=== PATIENT | male | born 1950 | race Caucasian/White ===

== ENCOUNTER 2021-10-28 08:18 | Observation (INO) ==
[2021-10-28] MEDS ORDERED: SODIUM CHLORIDE 0.9% 500 ML IV SCH (08:45)
[2021-10-28] MEDS ORDERED: SODIUM CHLORIDE 0.9% 1000ML 1,000 ML IV SCH (08:45)
[2021-10-28 08:47] LABS: Basophils # (auto) 0.04 K/uL (0-0.2); Basophils % (auto) 0.6 %; Eosinophils # (auto) 0.09 K/uL (0-0.50); Eosinophils % (auto) 1.3 %; Hematocrit (blood only) 39.4 % (40.1-51.0); Hemoglobin 13.3 g/dl (14.0-18.0); Immature Granulocytes # (auto) 0.02 K/uL (0.00-0.02); Immature Granulocytes % (auto) 0.3 %; Lymphocytes # (auto) 1.92 K/uL (1.2-3.4); Mean Corpuscular Hemoglobin 30.1 pg (25.0-34.0); Mean Corpuscular Hgb Conc 33.8 g/dL (32.0-36.0); Mean Corpuscular Volume 89.1 fL (80.0-100.0); Mean Platelet Volume 10.3 fL (9.4-12.4); Monocytes # (auto) 0.54 K/uL (0.24-0.82); Monocytes % (auto) 7.9 %; Neutrophils # (auto) 4.25 K/uL (1.4-6.5); Neutrophils % (auto) 61.9 %; Platelet Count 226 K/uL (130-400); RDW Standard Deviation 39.1 fL (36.4-46.3); Red Blood Count 4.42 M/uL (4.63-6.08); White Blood Count 6.86 K/ul (4.8-10.8)
[2021-10-28] MEDS ORDERED: ACETAMINOPHEN 500 MG TAB PO STA (08:48)
--- NOTE | 2021-10-28 08:50 | Emergency Department Note ---
Impression & Plan Syncope and collapse, Headache, Acute neck pain, Hyperglycemia ED Provider Note INFORMANT: Patient ED PROVIDER(S): Dougie King MD CHIEF COMPLAINT: Syncope PLAN: Disposition: Admitted Condition: Good Outpatient prescription management: none Referral: None MEDICAL DECISION MAKING: Patient presented to the emergency department because of a syncopal episode. There was no prodrome inciting event by history. The patient underwent a work- up. He had a normal ECG. His CBC, chemistry panel, troponin and D-dimer did not reveal any obvious abnormalities. CT imaging of the head and neck did not reveal any traumatic findings or other pathology. Patient was on the monitor tech and was in a sinus rhythm. His syncope is concerning for possible cardiac etiology. Further management in the hospital will be necessary. Patient and are in agreement. Consultation was made with the [facility]. Patient was evaluated for further management. Triage Nursing notes reviewed and agree them. Vital Signs: reviewed and remarkable for no significant abnormalities Differential diagnosis: Vasovagal event, dehydration, infection, hypoglycemia, electrolyte abnormalities, cardiac sources, intracerebral event, pulmonary embolism, seizure, toxicologic, neurologic, as well as other pathologies. Diagnostics interpreted by me: EC Lead ECG performed and revealed Normal sinus rhythm at 73, Left [place], QRS normal. No elevation or depression. No PACs or PVCs Cardiac Monitoring: Cardiac monitoring ordered by me: The patient was placed on continuous cardiac monitoring and observed. It revealed a normal sinus rhythm at 72beats per minute without ectopy or evidence of dysrhythmia. Imaging studies: CT imaging of the head and C-spine negative. I refer you to the EMR for further details. Chest x-ray. Findings: A chest x-ray was performed and revealed no pneumothorax, effusion, infiltrate, pulmonary edema, free air under the diaphragm, or wide mediastinum. Impression: No acute disease. HPI: The patient is a 71 year old male who presents to the Emergency Room with complaints of syncope. This started just prior to arrival and is described as sudden in onset. Patient had no prodrome. reports she heard a thump and went to him right away. He was on the floor and out of it. He does not remember falling. The patient also notes the following associated symptoms, developing a mild headache after the event, neck pain after the event. Patient states he is diabetic and his sugars have been fluctuating. His sugar was 300 this morning and 240 on arrival. States he has been in good health recently. He did travel from the [place] area in his camper to vacation here locally. No sick contacts that he is aware of. No flu symptoms. The patient has taken no medication for relieving factors. Current pain is rated as 0/10. Pt denies LOC, fevers, chills, diaphoresis, visual changes, chest pain, breathing difficulties, nausea, vomiting, abdominal pain, back pain, melena, hematochezia, urinary symptoms, numbness, weakness, lymphadenopathy, rash, or other complaints. ROS: See above HPI for pertinent positives & negatives. A total of 10 systems reviewed and were otherwise negative. PAST MEDICAL HISTORY:See Below , diabetes, hypertension PAST SURGICAL HISTORY:See Below, FAMILY HISTORY:See Below SOCIAL HISTORY:See Below, HOME MEDICATIONS:See Below ALLERGIES:See Below VITALS:See Below PHYSICAL EXAMINATION: GENERAL: Awake, alert, well-appearing, in no distress HENT: Normocephalic, atraumatic. Oropharynx unremarkable. EYES: Normal conjunctiva. Sclera non-icteric. PERRLA. EOMI. NECK: Inspection normal. Non-tender. Supple. No nuchal rigidity. FROM. No masses. RESPIRATORY: Clear to auscultation. No wheezes. No rales. Normal respiratory effort. CARDIAC: Normal rate. Normal rhythm. No murmurs. No rubs. Extremities warm and well perfused. Pulses equal. No JVD. GI: Soft, non-distended. No tenderness to palpation. No rebound or guarding. No masses. RECTAL: Deferred. MUSCULOSKELETAL: Atraumatic. Chest examination reveals no tenderness. The back is symmetrical on inspection without obvious abnormality. There is no CVA tenderness to palpation. No joint edema. LOWER EXTREMITIES: Calves are equal size bilaterally and non-tender. No edema. No discoloration. NEURO: Normal sensorium. No sensory or motor deficits noted. Cranial nerves II through XII intact. No drift. Normal rapid alternating movements. SKIN: No rash or jaundice noted. Dougie King MD Past Med/Surg History Medical History (Updated 10/28/21 @ 12:23 by Damaris Paulino PA-C) History of prostate cancer Hypertension SHABBIR (obstructive sleep apnea) Type 2 diabetes mellitus Surgical History H/O prostatectomy Family History Other Diabetes Stroke Social History Smoking Status: Never smoker Hx Alcohol Use: No Hx Substance Use: No Preferred Language: Swedish Resource Management Planner Required: No Beliefs That Will Affect Care: None Current Living Situation: Spouse Current Living Situation Comment: Lives at home with Other Information That Helps Us Care for You: No Feels Safe at Home: Yes Safety Concerns: Feels Safe At This Time Assistive Devices: Glasses Allergies Allergies Allergy/AdvReac Type Severity Reaction Status Date / Time sulfamethoxazole AdvReac Hives Verified 10/28/21 13:31 [From Bactrim] trimethoprim [From Bactrim] AdvReac Hives Verified 10/28/21 13:31 Home Meds Home Medications Medication Instructions Recorded Confirmed allopurinol 100 mg tablet 100 mg PO DAILY 10/28/21 10/28/21 cholecalciferol (vitamin D3) 25 25 mcg PO DAILY 10/28/21 10/28/21 mcg (1,000 unit) tablet cyanocobalamin (vitamin B-12) 1,000 mcg PO DAILY 10/28/21 10/28/21 1,000 mcg tablet (Vitamin B-12) dulaglutide 3 mg/0.5 mL 3 mg subcut WK 10/28/21 10/28/21 subcutaneous pen injector (Trulicity) glipizide 5 mg tablet 5 mg PO BID 10/28/21 10/28/21 hydrochlorothiazide 25 mg tablet 25 mg PO DAILY 10/28/21 10/28/21 losartan 100 mg tablet 100 mg PO DAILY 10/28/21 10/28/21 magnesium 1 tab PO DAILY 10/28/21 10/28/21 metformin 1,000 mg tablet 1,000 mg PO BID 10/28/21 10/28/21 nebivolol 5 mg tablet 5 mg PO DAILY 10/28/21 10/28/21 rosuvastatin 10 mg tablet 10 mg PO HS 10/28/21 10/28/21 Results & Data (ED) Vital Signs Vital Signs - 24 hr 10/28/21 08:21 Temperature 36.3 C L Temperature Source Temporal Artery Scan Pulse Rate 72 Respiratory Rate 20 Respiratory Effort / Characteristics Non-Labored Spontaneous Respiratory Depth Normal Respiratory Pattern Regular Blood Pressure 186/82 H Blood Pressure Mean 116 Pulse Oximetry 98 Oxygen Delivery Method Room Air Sepsis Recent Fever Within 48 Hours No Sepsis New/Unexplained Change in Mental Status No Sepsis Action Taken by Nursing No Action Required Laboratory Data Result diagrams: 10/29/21 06:09 10/29/21 06:09 Lab Results 10/28/21 10/28/21 10/28/21 Range/Units 08:35 08:37 08:37 WBC 6.86 (4.8-10.8) K/ul RBC 4.42 L (4.63-6.08) M/uL Hgb 13.3 L (14.0-18.0) g/dl Hct 39.4 L (40.1-51.0) % MCV 89.1 (80.0-100.0) fL MCH 30.1 (25.0-34.0) pg MCHC 33.8 (32.0-36.0) g/dL RDW Std Deviation 39.1 (36.4-46.3) fL RDW Coeff of Kaylee 12.0 (11.5-14.5) % Plt Count 226 (130-400) K/uL MPV 10.3 (9.4-12.4) fL Immature Gran % (Auto) 0.3 % Neut % (Auto) 61.9 % Lymph % (Auto) 28.0 % [place] % (Auto) 7.9 % Eos % (Auto) 1.3 % Baso % (Auto) 0.6 % Neut # (Auto) 4.25 (1.4-6.5) K/uL Lymph # (Auto) 1.92 (1.2-3.4) K/uL [place] # (Auto) 0.54 (0.24-0.82) K/uL Eos # (Auto) 0.09 (0-0.50) K/uL Baso # (Auto) 0.04 (0-0.2) K/uL Immature Gran # (Auto) 0.02 (0.00-0.02) K/uL D-Dimer (0-500) ug/L FEU Sodium 136 (136-145) mmol/L Potassium 4.2 (3.5-5.1) mmol/L Chloride 104 (98-107) mmol/L Carbon Dioxide 27 (21-32) mmol/L Anion Gap 5 (3-11) BUN 14 (6-23) mg/dl Creatinine 1.14 (0.6-1.4) mg/dl Est Cr Clr Drug Dosing 69.8 ml/min Est GFR ( Amer) 74.6 ml/min Est GFR (Non-Af Amer) 64.3 ml/min BUN/Creatinine Ratio 12.3 (10-20) Glucose 233 H (70-99(Fasting)) mg/dl POC Glucose 240 H (70-99) mg/dl Calcium 9.5 (8.5-10.1) mg/dl Magnesium 1.8 (1.7-2.4) mg/dl Total Bilirubin 0.5 (0.2-1.0) mg/dl AST 33 (13-39) U/L ALT 43 (7-52) U/L Alkaline Phosphatase 76 (34-104) U/L Troponin I High Sens 4.5 (0-20) pg/ml Total Protein 6.9 (6.0-8.3) gm/dl Albumin 4.2 (3.4-5.0) gm/dl Globulin 2.7 (2.5-4.0) gm/dl Albumin/Globulin Ratio 1.6 (0.9-2) TSH (0.300-4.500) uIu/ml Urine Color Urine Appearance (Clear) Urine pH (4.5-7.5) Ur Specific [place] (1.000-1.030) Urine Protein (Negative) Urine Glucose (UA) (Negative) Urine Ketones (Negative) Urine Blood (Negative) Urine Nitrite (Negative) Urine Bilirubin (Negative) Urine Urobilinogen (Negative) Ur Leukocyte Esterase (Negative) SARS-CoV-2, RNA, NAAT (NEGATIVE) 10/28/21 10/28/21 10/28/21 Range/Units 08:37 08:37 09:01 WBC (4.8-10.8) K/ul RBC (4.63-6.08) M/uL Hgb (14.0-18.0) g/dl Hct (40.1-51.0) % MCV (80.0-100.0) fL MCH (25.0-34.0) pg MCHC (32.0-36.0) g/dL RDW Std Deviation (36.4-46.3) fL RDW Coeff of Kaylee (11.5-14.5) % Plt Count (130-400) K/uL MPV (9.4-12.4) fL Immature Gran % (Auto) % Neut % (Auto) % Lymph % (Auto) % [place] % (Auto) % Eos % (Auto) % Baso % (Auto) % Neut # (Auto) (1.4-6.5) K/uL Lymph # (Auto) (1.2-3.4) K/uL [place] # (Auto) (0.24-0.82) K/uL Eos # (Auto) (0-0.50) K/uL Baso # (Auto) (0-0.2) K/uL Immature Gran # (Auto) (0.00-0.02) K/uL D-Dimer 210 (0-500) ug/L FEU Sodium (136-145) mmol/L Potassium (3.5-5.1) mmol/L Chloride (98-107) mmol/L Carbon Dioxide (21-32) mmol/L Anion Gap (3-11) BUN (6-23) mg/dl Creatinine (0.6-1.4) mg/dl Est Cr Clr Drug Dosing ml/min Est GFR ( Amer) ml/min Est GFR (Non-Af Amer) ml/min BUN/Creatinine Ratio (10-20) Glucose (70-99(Fasting)) mg/dl POC Glucose (70-99) mg/dl Calcium (8.5-10.1) mg/dl Magnesium (1.7-2.4) mg/dl Total Bilirubin (0.2-1.0) mg/dl AST (13-39) U/L ALT (7-52) U/L Alkaline Phosphatase (34-104) U/L Troponin I High Sens (0-20) pg/ml Total Protein (6.0-8.3) gm/dl Albumin (3.4-5.0) gm/dl Globulin (2.5-4.0) gm/dl Albumin/Globulin Ratio (0.9-2) TSH 2.543 (0.300-4.500) uIu/ml Urine Color Urine Appearance (Clear) Urine pH (4.5-7.5) Ur Specific [place] (1.000-1.030) Urine Protein (Negative) Urine Glucose (UA) (Negative) Urine Ketones (Negative) Urine Blood (Negative) Urine Nitrite (Negative) Urine Bilirubin (Negative) Urine Urobilinogen (Negative) Ur Leukocyte Esterase (Negative) SARS-CoV-2, RNA, NAAT NEGATIVE (NEGATIVE) 10/28/21 Range/Units 10:15 WBC (4.8-10.8) K/ul RBC (4.63-6.08) M/uL Hgb (14.0-18.0) g/dl Hct (40.1-51.0) % MCV (80.0-100.0) fL MCH (25.0-34.0) pg MCHC (32.0-36.0) g/dL RDW Std Deviation (36.4-46.3) fL RDW Coeff of Kaylee (11.5-14.5) % Plt Count (130-400) K/uL MPV (9.4-12.4) fL Immature Gran % (Auto) % Neut % (Auto) % Lymph % (Auto) % [place] % (Auto) % Eos % (Auto) % Baso % (Auto) % Neut # (Auto) (1.4-6.5) K/uL Lymph # (Auto) (1.2-3.4) K/uL [place] # (Auto) (0.24-0.82) K/uL Eos # (Auto) (0-0.50) K/uL Baso # (Auto) (0-0.2) K/uL Immature Gran # (Auto) (0.00-0.02) K/uL D-Dimer (0-500) ug/L FEU Sodium (136-145) mmol/L Potassium (3.5-5.1) mmol/L Chloride (98-107) mmol/L Carbon Dioxide (21-32) mmol/L Anion Gap (3-11) BUN (6-23) mg/dl Creatinine (0.6-1.4) mg/dl Est Cr Clr Drug Dosing ml/min Est GFR ( Amer) ml/min Est GFR (Non-Af Amer) ml/min BUN/Creatinine Ratio (10-20) Glucose (70-99(Fasting)) mg/dl POC Glucose (70-99) mg/dl Calcium (8.5-10.1) mg/dl Magnesium (1.7-2.4) mg/dl Total Bilirubin (0.2-1.0) mg/dl AST (13-39) U/L ALT (7-52) U/L Alkaline Phosphatase (34-104) U/L Troponin I High Sens (0-20) pg/ml Total Protein (6.0-8.3) gm/dl Albumin (3.4-5.0) gm/dl Globulin (2.5-4.0) gm/dl Albumin/Globulin Ratio (0.9-2) TSH (0.300-4.500) uIu/ml Urine Color Yellow Urine Appearance Clear (Clear) Urine pH 5.0 (4.5-7.5) Ur Specific [place] 1.012 (1.000-1.030) Urine Protein Negative (Negative) Urine Glucose (UA) Trace H (Negative) Urine Ketones Negative (Negative) Urine Blood Negative (Negative) Urine Nitrite Negative (Negative) Urine Bilirubin Negative (Negative) Urine Urobilinogen Negative (Negative) Ur Leukocyte Esterase Negative (Negative) SARS-CoV-2, RNA, NAAT (NEGATIVE) Administered Medications Acetaminophen (Acetaminophen 325 Mg Tab) 650 mg PO Q4H PRN PRN Reason: Pain or Fever Stop: 11/27/21 13:30 Last Admin: 10/29/21 02:03 Dose: 650 mg Documented By: NABIL Allopurinol (Allopurinol 100 Mg Tab) 100 mg PO DAILY [facility] Stop: 11/28/21 08:59 Last Admin: 10/29/21 08:06 Dose: 100 mg Documented By: RB Cyanocobalamin (Cyanocobalamin (B-12) 500 Mcg Tablet) 1,000 mcg PO DAILY [facility] Stop: 11/28/21 08:59 Last Admin: 10/29/21 08:06 Dose: 1,000 mcg Documented By: RB Enoxaparin Sodium (Enoxaparin Inj 40 Mg/0.4 Ml Syr) 40 mg SQ Q24H [facility] Stop: 11/27/21 13:30 Last Admin: 10/28/21 14:48 Dose: 40 mg Documented By: RB Hydrochlorothiazide (Hydrochlorothiazide 25 Mg Tab) 25 mg PO DAILY [facility] Stop: 11/28/21 08:59 Last Admin: 10/29/21 08:06 Dose: 25 mg Documented By: RB Insulin Aspart (Insulin Aspart Per Unit) 0 units SC ACHS CON Stop: 11/27/21 16:29 Last Admin: 10/29/21 08:07 Dose: 4 units Documented By: RB Co-signed By: Admin: 10/28/21 20:32 Dose: Not Given Documented By: Admin: 10/28/21 17:04 Dose: 9 units Documented By: RB Co-signed By: JESS Losartan Potassium (Losartan Potassium 50 Mg Tab) 100 mg PO DAILY CON Stop: 11/28/21 08:59 Last Admin: 10/29/21 08:05 Dose: 100 mg Documented By: RB Magnesium Oxide (Magnesium Oxide 400 Mg Tab) 400 mg PO DAILY CON Stop: 11/28/21 08:59 Last Admin: 10/29/21 08:05 Dose: 400 mg Documented By: RB Metoprolol Tartrate (Metoprolol Tartrate 25 Mg Tab) 25 mg PO BID CON Stop: 11/27/21 20:59 Last Admin: 10/29/21 08:06 Dose: 25 mg Documented By: Admin: 10/28/21 20:32 Dose: Not Given Documented By: EEM Rosuvastatin Calcium (Rosuvastatin Calcium 10 Mg Tab) 10 mg PO HS CON Stop: 11/27/21 20:59 Last Admin: 10/28/21 20:31 Dose: 10 mg Documented By: EEM Vitamin D (Cholecalciferol 1,000 Units 25 Mcg Tab) 1,000 units PO DAILY CON Stop: 11/28/21 08:59 Last Admin: 10/29/21 08:06 Dose: 1,000 units Documented By: RB Discontinued Medications Acetaminophen (Acetaminophen 500 Mg Tab) 1,000 mg PO NOW STA Stop: 10/28/21 08:49 Last Admin: 10/28/21 09:04 Dose: 1,000 mg Documented By: HS Sodium Chloride (Nss) 500 mls @ 999 mls/hr IV .Q31M CON Stop: 10/28/21 09:15 Last Infusion: 10/28/21 09:31 Dose: 0 mls/hr Documented By: Admin: 10/28/21 09:05 Dose: 999 mls/hr Documented By: HS Sodium Chloride (Nss 1000ml) 1,000 mls @ 125 mls/hr IV .Q8H CON Stop: 10/28/21 16:44 Last Infusion: 10/28/21 14:57 Dose: 0 mls/hr Documented By: Admin: 10/28/21 09:05 Dose: 125 mls/hr Documented By: HS Discharge Plan Visit Data Chief Complaint: Syncope Stated Complaint: SYNCOPE ED Provider: Dougie King Discharge Problem: Syncope and collapse, Headache, Acute neck pain, Hyperglycemia Patient Disposition: Admitted As Inpatient Discharge Instructions Interventions: ED Discharge Assessment Last Done: 10/28/21 13:06
--- NOTE | 2021-10-28 09:11 | XRay Report ---
XR chest 1V portable CLINICAL HISTORY: weakness TECHNIQUE: Single frontal radiograph of the chest was obtained. Comparison: None available at the time of this dictation. FINDINGS: No lines and tubes are seen. The cardiomediastinal silhouette is normal. The lungs are clear. No evid ence of pleural effusion or pneumothorax. IMPRESSION: No acute chest disease. ACT 112: Negative or not required by law. Electronically signed by: Aniceto Brennan M.D. 10/28/2021 9:09 AM
[2021-10-28 09:14] LABS: Troponin I High Sensitivity 4.5 pg/ml (0-20)
[2021-10-28 09:22] LABS: Albumin Globulin Ratio 1.6 (0.9-2); Albumin Level 4.2 gm/dl (3.4-5.0); BUN Creatinine Ratio 12.3 (10-20); Bilirubin,Total 0.5 mg/dl (0.2-1.0); Calcium 9.5 mg/dl (8.5-10.1); Creatinine Clr Calc Pharmacy 69.8 ml/min; Est GFR (African American) 74.6 ml/min; Est GFR (Non-African American) 64.3 ml/min; Globulin 2.7 gm/dl (2.5-4.0); Magnesium 1.8 mg/dl (1.7-2.4); Potassium 4.2 mmol/L (3.5-5.1); Total Protein 6.9 gm/dl (6.0-8.3)
[2021-10-28 09:43] LABS: D Dimer 210 ug/L FEU (0-500)
--- NOTE | 2021-10-28 09:44 | CT Scan Report ---
CT head/brain wo con CLINICAL HISTORY: syncope, [facility] Technique: Contiguous axial CT images of the head were acquired from the base of the skull to the diony karthik without intravenous contrast administration. Images were viewed in brain, subdural and bone [facility]. Automated dose lowering techniques and/or adjustment according to patient size were utilized for this exam. Comparison: None available at the time of this dictation. Findings: Areas of decreased attenuation are present in the periventricular and subcortical white matter bilate rally consistent with small vessel ischemic disease. Generalized cerebral atrophy with commensurate e nlargement of the ventricles, sulci, and cisterns is also present. There is no acute intracranial hem orrhage or evidence of acute territorial infarction. No shift of the midline structures, mass effect, or extra-axial abnormalities are shown. Atherosclerotic calcifications are present in the intracran ial segments of the internal carotid arteries. Imaged portions of the paranasal sinuses and mastoid air cells are clear. The orbits appear normal. There are no acute fractures of the calvaria or scalp swelling. Impression: No acute intracranial hemorrhage, no evidence of acute territorial infarction or other acute intracra nial disease process. ACT 112: Negative or not required by law. Electronically signed by: Aniceto Brennan M.D. 10/28/2021 9:43 AM
--- NOTE | 2021-10-28 09:44 | CT Scan Report ---
CT cervical spine wo con CLINICAL HISTORY: syncope, fall, neck pain TECHNIQUE: Multidetector row helical CT of the cervical spine was performed without administration of intravenous contrast. Coronal and sagittal reformations were obtained. Automated dose lowering techn iques and/or adjustment according to patient size were utilized for this exam. Comparison: None available at the time of this dictation. FINDINGS: No acute fractures or subluxations are identified. Degenerative changes are seen in the visualized sp ine. The alignment is normal. Soft tissues are unremarkable. IMPRESSION: Degenerative changes without evidence of acute bony injury. ACT 112: Negative or not required by law. Electronically signed by: Aniceto Brennan M.D. 10/28/2021 9:42 AM
[2021-10-28 10:32] LABS: Appearance Urine Clear (Clear); Bilirubin Urine Negative (Negative); Blood Urine Negative (Negative); Color Urine Yellow; Glucose Urine UA Trace (Negative); Ketones Urine Negative (Negative); Leukocyte Esterase Urine Negative (Negative); Nitrite Urine Negative (Negative); Protein Urine Negative (Negative); Specific Gravity Urine 1.012 (1.000-1.030); Urobilinogen Urine Negative (Negative)
--- NOTE | 2021-10-28 10:41 | History & Physical Report ---
Date of Service October 28, 2021 Assessment & Plan (1) Syncope and collapse: Plan: This is a 71-year-old male with PMH of hypertension, type 2 diabetes, history of prostate cancer, SHABBIR on CPAP and other medical problems listed below who presents after unwitnessed syncopal event earlier today. Rule out cardiac etiology, history of HTN and DM II. No Known CAD or arrythmia hx ECG with NSR, LAD. No previous ECGs for comparison Afebrile, no leukocytosis or s/sx of infection Orthostatics, 2D echo, carotid doppler, MRI brain wo con pending Monitor on telemetry (2) Hypertension: Plan: Continue home losartan, hctz, nebivolol BP following syncopal episode 170/85. 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 Burkett. Please see addendum. History of Present Illness Chief Complaint: Syncopal event Primary Care Provider: NO PCP This is a 71-year-old male with PMH of hypertension, type 2 diabetes, history of prostate cancer, SHABBIR on CPAP and other medical problems listed below who presents after unwitnessed syncopal event earlier today. Patient and are on vacation from [place] outside of [place] in their mobile home staying at a local campground. Patient has been in normal state of health and able to go on his daily walks. Was getting ready this morning for his walk when he turned to grab his shirt off of the bed and then remembers "feeling funny" as if "mobile home was moving". Next thing he remembers is lying on the ground coming to with his by his side. They checked his blood sugar at that time which was 308. Blood pressure was 170/85. Denies any preceding lightheadedness, dizziness, chest pain or palpitations prior to syncopal event. Denies history of syncopal episodes. 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 No known history of CAD. No history of seizure. States he feels fine now except for general fatigue and fogginess. Denies confusion and headache. No fever, chills, congestion, chest pain, palpitations, shortness of breath, nausea, vomiting, abdominal pain, dysuria, diarrhea or constipation. Takes all medications as prescribed and took his blood pressure medication this morning. Allergies Allergy/AdvReac Type Severity Reaction Status Date / Time sulfamethoxazole AdvReac Hives Verified 10/28/21 13:31 [From Bactrim] trimethoprim [From Bactrim] AdvReac Hives Verified 10/28/21 13:31 Home Medications Medication Instructions Recorded Confirmed Type allopurinol 100 mg tablet 100 mg PO DAILY 10/28/21 10/28/21 History cholecalciferol (vitamin D3) 25 25 mcg PO DAILY 10/28/21 10/28/21 History mcg (1,000 unit) tablet cyanocobalamin (vitamin B-12) 1,000 mcg PO DAILY 10/28/21 10/28/21 History 1,000 mcg tablet (Vitamin B-12) dulaglutide 3 mg/0.5 mL 3 mg subcut WK 10/28/21 10/28/21 History subcutaneous pen injector (Trulicity) glipizide 5 mg tablet 5 mg PO BID 10/28/21 10/28/21 History hydrochlorothiazide 25 mg tablet 25 mg PO DAILY 10/28/21 10/28/21 History losartan 100 mg tablet 100 mg PO DAILY 10/28/21 10/28/21 History magnesium 1 tab PO DAILY 10/28/21 10/28/21 History metformin 1,000 mg tablet 1,000 mg PO BID 10/28/21 10/28/21 History nebivolol 5 mg tablet 5 mg PO DAILY 10/28/21 10/28/21 History rosuvastatin 10 mg tablet 10 mg PO HS 10/28/21 10/28/21 History Past Med/Surg History Medical History (Updated 10/28/21 @ 12:23 by Damaris Paulino PA-C) History of prostate cancer Hypertension SHABBIR (obstructive sleep apnea) Type 2 diabetes mellitus Surgical History H/O prostatectomy Family History Other Diabetes Stroke Social History Smoking Status: Never smoker Hx Alcohol Use: No Hx Substance Use: No 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 Physical Exam Physical Exam: General Appearance: WD/WN, vitals as above, NAD, sitting up in bed, pleasant, obese, conversing easily Head: normocephalic, atraumatic Eyes: normal inspection, PERRL, conjunctivae normal, anicteric sclerae ENT: external ear and nose normal, oropharynx normal Neck: normal visual inspection, trachea midline, no thyromegaly Respiratory: normal respiratory effort, lungs clear to auscultation, no wheeze, rales, rhonchi. No accessory muscle use Cardiovascular: regular rate, rhythm, no murmur, normal peripheral pulses, trace BLE edema. Vessels: no JVD Chest: normal inspection of chest Abdomen/GI: normal bowel sounds, soft, nontender, no hepatosplenomegaly Extremities/Musculoskeletal: no cyanosis or clubbing, extremities motor strength 5/5 Neurologic: PERRL, EOMI, accommodation nl, no face palsy, no dysarthria, CN's II-XI intact bilaterally and moves all extremities Psychiatric: A+Ox3, euthymic affect Skin: no rashes, normal color, warm/dry Results & Data Results & Data ([facility]) Vital Signs (Past 12 Hours) Vital Signs Temp Pulse Resp BP Pulse Ox O2 Del Method 10/28/21 08:21 36.3 C L 72 20 186/82 H 98 Room Air Laboratory Results Short CBC 10/28/21 Range/Units 08:37 WBC 6.86 (4.8-10.8) K/ul Hgb 13.3 L (14.0-18.0) g/dl Hct 39.4 L (40.1-51.0) % Plt Count 226 (130-400) K/uL BMP 10/28/21 08:37 Sodium 136 Potassium 4.2 Chloride 104 Carbon Dioxide 27 BUN 14 Creatinine 1.14 Glucose 233 H Calcium 9.5 Liver Function 10/28/21 Range/Units 08:37 Total Bilirubin 0.5 (0.2-1.0) mg/dl AST 33 (13-39) U/L ALT 43 (7-52) U/L Alkaline Phosphatase 76 (34-104) U/L Albumin 4.2 (3.4-5.0) gm/dl Urine 10/28/21 Range/Units 10:15 Urine Color Yellow Urine Appearance Clear (Clear) Urine pH 5.0 (4.5-7.5) Ur Specific [place] 1.012 (1.000-1.030) Urine Protein Negative (Negative) Urine Glucose (UA) Trace H (Negative) Diagnostic Findings Head CT 10/28/21 08:36 CT head/brain wo con CLINICAL HISTORY: syncope, CHI Technique: Contiguous axial CT images of the head were acquired from the base of the skull to the vertex without intravenous contrast administration. Images were viewed in brain, subdural and bone windows. Automated dose lowering techniques and/or adjustment according to patient size were utilized for this exam. Comparison: None available at the time of this dictation. Findings: Areas of decreased attenuation are present in the periventricular and subcortical white matter bilaterally consistent with small vessel ischemic disease. Generalized cerebral atrophy with commensurate enlargement of the ventricles, sulci, and cisterns is also present. There is no acute intracranial hemorrhage or evidence of acute territorial infarction. No shift of the midline structures, mass effect, or extra-axial abnormalities are shown. Atherosclerotic calcifications are present in the intracranial segments of the internal carotid arteries. Imaged portions of the paranasal sinuses and mastoid air cells are clear. The orbits appear normal. There are no acute fractures of the calvaria or scalp swelling. Impression: No acute intracranial hemorrhage, no evidence of acute territorial infarction or other acute intracranial disease process. ACT 112: Negative or not required by law. Electronically signed by: Aniceto Brennan M.D. 10/28/2021 9:43 AM Chest X-Ray 10/28/21 08:37 XR chest 1V portable CLINICAL HISTORY: weakness TECHNIQUE: Single frontal radiograph of the chest was obtained. Comparison: None available at the time of this dictation. FINDINGS: No lines and tubes are seen. The cardiomediastinal silhouette is normal. The lungs are clear. No evidence of pleural effusion or pneumothorax. IMPRESSION: No acute chest disease. ACT 112: Negative or not required by law. Electronically signed by: Aniceto Brennan M.D. 10/28/2021 9:[address] 10/28/21 08:48 CT cervical spine wo con CLINICAL HISTORY: syncope, fall, neck pain TECHNIQUE: Multidetector row helical CT of the cervical spine was performed without administration of intravenous contrast. Coronal and sagittal reformat ions were obtained. Automated dose lowering techniques and/or adjustment according to patient size were utilized for this exam. Comparison: None available at the time of this dictation. FINDINGS: No acute fractures or subluxations are identified. Degenerative changes are seen in the visualized spine. The alignment is normal. Soft tissues are unremarkable. IMPRESSION: Degenerative changes without evidence of acute bony injury. ACT 112: Negative or not required by law. Electronically signed by: Aniceto rBennan M.D. 10/28/2021 9:42 AM ECG Additional Comments: Normal sinus rhythm Left axis deviation Abnormal ECG No previous ECGs available Code Status & VTE Plan VTE Prophylaxis Plan VTE Prophylaxis will be ordered: Yes Supervising Physician Co-Signing Physician Notes Attending Addendum: care coordinated with VALERIE Paulino please refer to her notes for full details, I agree with her notes patient seen and examined, records reviewed by myself as well on exam, patient seen resting in wheelchair, comfortable, not in distress no chest pain, dyspnea, palpitations, dizziness fell suddenly while getting ready to take a walk outside- no preceding symptoms per , passed out for about 4 minutes upon waking up, was somewhat confused but was reoriented quickly no other symptoms VS noted and reviewed oriented x 3, not in distress, speaks in sentences with no effort nor accessory muscle use normal rate, regular rhythm, no murmurs clear breath sounds bilaterally non distended, soft, nontender no bipedal edema, erythema, warmth no neuro deficits ASSESSMENT AND PLAN SYNCOPE, NO PRODROME Ddimer: normal blood glucose:233 EKG: no signs of acute ischemia infarct r/o acute CVA: Brain MRI r/o arrhythmia: telemetry monitoring, echo r/o orthostasis: orthostatic VS other diagnoses and plan of care as per VALERIE Paulino's notes Jhonathan Burkett MD
--- NOTE | 2021-10-28 12:06 | Electrocardiogram Report ---
Test Reason : Blood Pressure : / mmHG Vent. Rate : 075 BPM Atrial Rate : 075 BPM P-R Int : 176 ms QRS Dur : 094 ms QT Int : 372 ms P-R-T Axes : 075 -47 031 degrees QTc Int : 415 ms Normal sinus rhythm Left axis deviation Abnormal ECG No previous ECGs available Confirmed by Broderick Clay ([id number]) on 10/28/2021 12:05:47 PM Referred By: REFERRED SELF Confirmed By:Broderick Clay
[2021-10-28] MEDS ORDERED: CARBOHYDRATES FOR HYPOGLYCEMIA PO PRN (12:15)
[2021-10-28] MEDS ORDERED: GLUCAGON FOR INJ 1 MG VIAL SQ PRN (12:15)
[2021-10-28] MEDS ORDERED: GLUCOSE 10 TAB/TUBE PO PRN (12:15)
[2021-10-28] MEDS ORDERED: DEXTROSE 50% 50 ML SYRINGE IV PRN (12:15)
[2021-10-28] MEDS ORDERED: GLUCOSE 40% GEL 15 GM TUBE PO PRN (12:15)
--- NOTE | 2021-10-28 13:17 | Ultrasound Report ---
ULTRASOUND OF THE CAROTID ARTERIES CLINICAL HISTORY: syncope COMPARISON: None available at the time of this dictation. TECHNIQUE: Real-time, grayscale, and color Doppler sonography of the carotid arteries is performed. I mages are reviewed in the transverse and longitudinal planes. FINDINGS: The carotid arteries are patent bilaterally and demonstrate antegrade flow. There is no atherosclerot ic plaque on the right and no atherosclerotic plaque on the left. Normal doppler arterial waveforms a re seen throughout. Velocity measurements are listed below. Common carotid peak systolic velocity (cm/sec): RIGHT: 84 LEFT: 93 ICA peak systolic velocity (cm/sec): RIGHT: 69 LEFT: 69 ICA/CC peak systolic ratio: RIGHT: 0.8 LEFT: 0.7 Antegrade flow was shown in the vertebral arteries. The external carotid arteries are patent. IMPRESSION: 1. There is no sonographic evidence of hemodynamically significant stenosis in the right or left car otid arterial system. 2. Antegrade flow is shown in the vertebral arteries. Society of Radiologists in Ultrasound consensus guidelines: Normal: ICA PSV is <125 cm/sec and no plaque or intimal thickening is visible sonographically additional criteria include ICA/CCA PSV ratio <2.0 and ICA EDV <40 cm/sec <50% ICA stenosis: ICA PSV is <125 cm/sec and plaque or intimal thickening is visible sonographically additional criteria include ICA/CCA PSV ratio <2.0 and ICA EDV <40 cm/sec 50-69% ICA stenosis: ICA PSV is 125-230 cm/sec and plaque is visible sonographically additional criteria include ICA/CCA PSV ratio of 2.0-4.0 and ICA EDV of 40-100 cm/sec ?70% ICA stenosis but less than near occlusion: ICA PSV is >230 cm/sec and visible plaque and luminal narrowing are seen at olguin-scale and color Dopp ler ultrasound (the higher the Doppler parameters lie above the threshold of 230 cm/sec, the greater the likelihood of severe disease) additional criteria include ICA/CCA PSV ratio >4 and ICA EDV >100 cm/sec ACT 112: Negative or not required by law. Electronically signed by: Aniceto Brennan M.D. 10/28/2021 1:15 PM
--- NOTE | 2021-10-28 13:20 | Magnetic Resonance Report ---
MR brain wo con CLINICAL HISTORY: unexplained syncope TECHNIQUE: Multiplanar and multisequence MR images of the brain were obtained without intravenous con trast. Comparison: None available at the time of this dictation. FINDINGS: No abnormal restricted diffusion is identified. The white matter is unremarkable. The ventricular sys tem is normal in appearance. No mass is seen. There is no mass effect or midline shift. There is no e vidence of acute intraparenchymal hemorrhage. No extra axial fluid collections are seen. The corpus c allosum, pituitary gland, and cerebellar tonsils appear grossly unremarkable. Flow voids of the major intracranial arterial vessels are identified. The imaged portions of the para nasal sinuses, mastoid air cells, and orbits are unremarkable. IMPRESSION: No acute abnormality and in particular no evidence of acute infarct. ACT 112: Negative or not required by law. Electronically signed by: Aniceto Brennan M.D. 10/28/2021 1:19 PM
[2021-10-28] MEDS ORDERED: POLYETHYLENE (MIRALAX) 17 GM PACK PO PRN (13:31)
[2021-10-28] MEDS ORDERED: ONDANSETRON INJ 2 MG/ML 2 ML VIAL IV PRN (13:31)
[2021-10-28] MEDS ORDERED: ACETAMINOPHEN 325 MG TAB PO PRN (13:31)
[2021-10-28] MEDS: ENOXAPARIN INJ 40 MG/0.4 ML SYR SQ SCH (14:48)
[2021-10-28] MEDS: INSULIN ASPART PER UNIT SC SCH ×2 (17:04→20:32)
[2021-10-28] MEDS: METOPROLOL TARTRATE 25 MG TAB PO SCH (20:32)
[2021-10-28] MEDS ORDERED: ROSUVASTATIN CALCIUM 10 MG TAB PO SCH (21:00)
[2021-10-29 06:55] LABS: Hematocrit (blood only) 40.7 % (40.1-51.0); Hemoglobin 13.8 g/dl (14.0-18.0); Mean Corpuscular Hemoglobin 30.1 pg (25.0-34.0); Mean Corpuscular Hgb Conc 33.9 g/dL (32.0-36.0); Mean Corpuscular Volume 88.9 fL (80.0-100.0); Mean Platelet Volume 10.8 fL (9.4-12.4); Platelet Count 262 K/uL (130-400); RDW Coefficient of Variation 12.4 % (11.5-14.5); RDW Standard Deviation 40.5 fL (36.4-46.3); Red Blood Count 4.58 M/uL (4.63-6.08); White Blood Count 8.45 K/ul (4.8-10.8)
[2021-10-29 07:21] LABS: BUN Creatinine Ratio 14.3 (10-20); Calcium 9.3 mg/dl (8.5-10.1); Creatinine Clr Calc Pharmacy 66.5 ml/min; Est GFR (African American) 70.8 ml/min; Est GFR (Non-African American) 61.1 ml/min; Potassium 4.1 mmol/L (3.5-5.1)
[2021-10-29] MEDS: METOPROLOL TARTRATE 25 MG TAB PO SCH (08:06)
[2021-10-29] MEDS: INSULIN ASPART PER UNIT SC SCH ×2 (08:07→11:53)
[2021-10-29] MEDS ORDERED: CYANOCOBALAMIN (B-12) 500 MCG TABLET PO SCH (09:00)
[2021-10-29] MEDS ORDERED: LOSARTAN POTASSIUM 50 MG TAB PO SCH (09:00)
[2021-10-29] MEDS ORDERED: CHOLECALCIFEROL 1,000 UNITS 25 MCG TAB PO SCH (09:00)
[2021-10-29] MEDS ORDERED: allopurinoL 100 MG TAB PO SCH (09:00)
[2021-10-29] MEDS ORDERED: MAGNESIUM OXIDE 400 MG TAB PO SCH (09:00)
[2021-10-29] MEDS ORDERED: hydroCHLOROthiazide 25 MG TAB PO SCH (09:00)
--- NOTE | 2021-10-29 10:05 | Hospitalist Progress Note ---
Date of Service October 29, 2021 Assessment & Plan (1) Syncope and collapse: Plan: This is a 71-year-old male with PMH of hypertension, type 2 diabetes, history of prostate cancer, SHABBIR on CPAP and other medical problems listed below who presents after unwitnessed syncopal event No evidence of stroke, ACS, cardiac arrythmia, electrolyte abnormalities or changes in glucose. It is unclear what may have contributed here. Recently started allopurinol and statin in the last two months and trulicity was titrated up two weeks ago. It is unclear if that was a contributing factor. Would discharge and followup closely with primary care physician for further workup as outpatient if indicated, including consideration for an event monitor. (2) Hypertension: Plan: chronic, at goal. Continue home losartan, hctz, nebivolol (3) Type 2 diabetes mellitus: Plan: A1C pending, inpatient glucose at goal. Followup with primary care in one week of discharge and discuss possible medication side effects. (4) SHABBIR (obstructive sleep apnea): Plan: CPAP HS DVT Ppx: SQ heparin Code status: FULL PCP: Visiting from [place] Dispo: to home after cleared by Cardiology. Gaby Garcia DO [facility] Hospitalist Admission and Anticipated Discharge Date Admission Date: October 28, 2021 Subjective 71 yo M with DMII and HTN presents after an episode of syncope in his motor home. He is camping with his family this week in their motor home. He reports feeling unwell right before losing consciousness temporarily. He reports having eaten bran cereal with milk and having pizza the night before. His BSG was 300 after the incident. He started trucility two weeks prior and had just taken his second dose the night before the incident. Denies chest pain, denies any loss of bowel or bladder incontinence, denies history of syncope in the past. Nonsmoker and no alcohol use. Feel back to normal today although he is fatigued from lack of sleep. Review of Systems Review of Systems: All systems were reviewed and negative except as indicated on subjective above. Physical Exam Physical Exam: CONSTITUTIONAL: obese, vitals as above, generally well- appearing, NAD EYES: normal conjunctivae, no scleral icterus, ENT: external ear and nose normal, oropharynx clear, MMM NECK: trachea midline, RESPIRATORY: clear to auscultation bilaterally, no crackles, rales or wheezes, normal respiratory effort CARDIOVASCULAR: regular rate and rhythm, S1 and 2 heard without murmurs, gallops or rubs, no JVD, no peripheral edema CHEST: inspection of chest was normal GASTROINTESTINAL: soft, nontender, ND, no guarding MUSCULOSKELETAL: strength 5/5 throughout, head is normocephalic and atraumatic, SKIN: warm and dry, NEUROLOGIC: CN 2-12 grossly intact, no sensory deficit, normal cognition, normal speech, no tremor PSYCHIATRIC: alert cooperative and oriented to person, place and time. Euthymic mood, makes good eye contact, language grossly intact, recent and remote memory grossly intact. Results & Data Results & Data ([facility]) Vital Signs (Past 12 Hours) Vital Signs Temp Pulse Pulse Resp BP Pulse Ox O2 Del Method 10/29/21 07:32 86 10/29/21 07:14 36.7 C 70 18 149/81 H 98 Room Air 10/29/21 03:00 36.9 C 73 18 136/67 96 10/28/21 23:00 36.8 C 82 16 123/73 99 Laboratory Results Short CBC 10/29/21 Range/Units 06:09 WBC 8.45 (4.8-10.8) K/ul Hgb 13.8 L (14.0-18.0) g/dl Hct 40.7 (40.1-51.0) % Plt Count 262 (130-400) K/uL BMP 10/29/21 06:09 Sodium 137 Potassium 4.1 Chloride 103 Carbon Dioxide 30 BUN 17 Creatinine 1.19 Glucose 130 H Calcium 9.3 Urine 10/28/21 Range/Units 10:15 Urine Color Yellow Urine Appearance Clear (Clear) Urine pH 5.0 (4.5-7.5) Ur Specific [place] 1.012 (1.000-1.030) Urine Protein Negative (Negative) Urine Glucose (UA) Trace H (Negative) Medications Administered Current Inpatient Medications Acetaminophen (Acetaminophen 325 Mg Tab) 650 mg PO Q4H PRN PRN Reason: Pain or Fever Stop: 11/27/21 13:30 Last Admin: 10/29/21 02:03 Dose: 650 mg Allopurinol (Allopurinol 100 Mg Tab) 100 mg PO DAILY CON Stop: 11/28/21 08:59 Last Admin: 10/29/21 08:06 Dose: 100 mg Cyanocobalamin (Cyanocobalamin (B-12) 500 Mcg Tablet) 1,000 mcg PO DAILY CON Stop: 11/28/21 08:59 Last Admin: 10/29/21 08:06 Dose: 1,000 mcg Dextrose (Dextrose 50% 50 Ml Syringe) 25 - 50 ml IV UD PRN; Protocol PRN Reason: Hypoglycemia Protocol Stop: 11/27/21 12:14 Enoxaparin Sodium (Enoxaparin Inj 40 Mg/0.4 Ml Syr) 40 mg SQ Q24H CON Stop: 11/27/21 13:30 Last Admin: 10/28/21 14:48 Dose: 40 mg Glucagon (Glucagon For Inj 1 Mg Vial) 1 mg SQ UD PRN; Protocol PRN Reason: Hypoglycemia Protocol Stop: 11/27/21 12:14 Glucose (Glucose 40% Gel 15 Gm Tube) 15 - 30 gm PO UD PRN; Protocol PRN Reason: Hypoglycemia Protocol Stop: 11/27/21 12:14 Glucose (Glucose 10 Tab/Tube) 4 - 8 tab PO UD PRN; Protocol PRN Reason: Hypoglycemia Treatment Stop: 11/27/21 12:14 Hydrochlorothiazide (Hydrochlorothiazide 25 Mg Tab) 25 mg PO DAILY CON Stop: 11/28/21 08:59 Last Admin: 10/29/21 08:06 Dose: 25 mg Insulin Aspart (Insulin Aspart Per Unit) 0 units SC ACHS CON Stop: 11/27/21 16:29 Last Admin: 10/29/21 08:07 Dose: 4 units Losartan Potassium (Losartan Potassium 50 Mg Tab) 100 mg PO DAILY CON Stop: 11/28/21 08:59 Last Admin: 10/29/21 08:05 Dose: 100 mg Magnesium Oxide (Magnesium Oxide 400 Mg Tab) 400 mg PO DAILY CON Stop: 11/28/21 08:59 Last Admin: 10/29/21 08:05 Dose: 400 mg Metoprolol Tartrate (Metoprolol Tartrate 25 Mg Tab) 25 mg PO BID CON Stop: 11/27/21 20:59 Last Admin: 10/29/21 08:06 Dose: 25 mg Miscellaneous (Carbohydrates For Hypoglycemia ) 15 - 30 gm PO UD PRN PRN Reason: Hypoglycemia Protocol Stop: 11/27/21 12:14 Ondansetron HCl (Ondansetron Inj 2 Mg/Ml 2 Ml Vial) 4 mg IV Q6H PRN PRN Reason: Nausea Stop: 11/27/21 13:30 Polyethylene Glycol (Polyethylene (Miralax) 17 Gm Pack) 17 gm PO DAILY PRN PRN Reason: Constipation Stop: 11/27/21 13:30 Rosuvastatin Calcium (Rosuvastatin Calcium 10 Mg Tab) 10 mg PO HS [facility] Stop: 11/27/21 20:59 Last Admin: 10/28/21 20:31 Dose: 10 mg Vitamin D (Cholecalciferol 1,000 Units 25 Mcg Tab) 1,000 units PO DAILY CON Stop: 11/28/21 08:59 Last Admin: 10/29/21 08:06 Dose: 1,000 units
--- NOTE | 2021-10-29 12:47 | Cardiology Consultation ---
Date of Consultation October 29, 2021 Assessment & Plan (1) Syncope and collapse: (2) Hypertension: (3) Type 2 diabetes mellitus: Plan 71-year-old patient presents with syncopal episode. No preceding symptoms or palpitations. Patient recovered quickly without reported post ictal state. Cardiovascular evaluation unremarkable since admission. Echocardiogram demonstrating preserved LV systolic function. Telemetry reveals sinus rhythm without dysrhythmia, heart block, significant pauses, or symptomatic bradycardia. No symptoms suggestive of acute coronary syndrome. Denies any recent anginal symptoms with above average exercise capacity per history. Recommend continue current cardiovascular medications. Monitor telemetry during hospitalization. Outpatient event monitor recommended. Patient follows with a binding nicker in [place]. Instructed not to drive. agreeable to drive [place]. Patient will abstain from driving until he is evaluated by his binding nicker in [place]. Instructed to return to the emergency department with any recurrent lightheadedness, dizziness, syncope, or near syncope. History of Present Illness Reason for Consultation: Syncope Requesting Physician: Dr. Garcia Attending Physician: Gaby Garcia, History of Present Illness 71-year-old male presents emergency department due to syncope. Patient lost consciousness while standing in his camper. No prodromal/presyncopal symptoms noted. He is a diabetic with a history of hypoglycemia, however, assess blood glucose immediately afterward with a reading of over 300. Blood pressure 170s noted at home as well. believes duration of loss of consciousness was approximately 5 seconds. No witnessed tonic-clonic motion, tongue biting, or incontinence. Denies history of syncope. Follows with a binding nicker in [place] due to episode of chest discomfort and hypertension. Currently patient resting comfortably. Reports walking 1.5 miles daily without exertional angina. Denies palpitations, shortness of breath or chest discomfo rt. No focal weakness, slurred speech, paresthesias, or gait instability. Denies orthopnea, PND, or lower extremity edema. Currently feeling back to baseline. No events on telemetry overnight. Sinus rhythm in the 70s-80s recorded. No heart block, significant pauses, or symptomatic bradycardia. Allergies Allergy/AdvReac Type Severity Reaction Status Date / Time sulfamethoxazole AdvReac Hives Verified 10/28/21 13:31 [From Bactrim] trimethoprim [From Bactrim] AdvReac Hives Verified 10/28/21 13:31 Home Medications Medication Instructions Recorded Confirmed Type allopurinol 100 mg tablet 100 mg PO DAILY 10/28/21 10/28/21 History cholecalciferol (vitamin D3) 25 25 mcg PO DAILY 10/28/21 10/28/21 History mcg (1,000 unit) tablet cyanocobalamin (vitamin B-12) 1,000 mcg PO DAILY 10/28/21 10/28/21 History 1,000 mcg tablet (Vitamin B-12) dulaglutide 3 mg/0.5 mL 3 mg subcut WK 10/28/21 10/28/21 History subcutaneous pen injector (Trulicity) glipizide 5 mg tablet 5 mg PO BID 10/28/21 10/28/21 History hydrochlorothiazide 25 mg tablet 25 mg PO DAILY 10/28/21 10/28/21 History losartan 100 mg tablet 100 mg PO DAILY 10/28/21 10/28/21 History magnesium 1 tab PO DAILY 10/28/21 10/28/21 History metformin 1,000 mg tablet 1,000 mg PO BID 10/28/21 10/28/21 History nebivolol 5 mg tablet 5 mg PO DAILY 10/28/21 10/28/21 History rosuvastatin 10 mg tablet 10 mg PO HS 10/28/21 10/28/21 History Patient History Medical History History of prostate cancer Hypertension SHABBIR (obstructive sleep apnea) Type 2 diabetes mellitus Surgical History H/O prostatectomy Family History Other Diabetes Stroke Social History Smoking Status: Never smoker Hx Alcohol Use: No Hx Substance Use: No Preferred Language: Serbian Librarian Helper Required: No Beliefs That Will Affect Care: None Current Living Situation: Spouse Current Living Situation Comment: Lives at home with Other Information That Helps Us Care for You: No Feels Safe at Home: Yes Safety Concerns: Feels Safe At This Time Assistive Devices: Glasses Review of Systems Review of Systems: All systems reviewed & are unremarkable except as noted in Subjective Physical Exam Constitutional: well nourished; no acute distress Respiratory: normal respiratory effort; no respiratory distress, no labored breathing and no retractions Cardiovascular: Rate/Rhythm: regular rate and regular rhythm Heart Sounds: normal S1 and normal S2; no murmur and no cardiac rub Vessels: no JVD and no carotid bruit Extremities: no edema Gastrointestinal (Abdomen): Inspection/Auscultation: abdomen normal to inspection and normal bowel sounds; abdomen not distended Perc ussion/Palpation: abdomen soft; abdomen nontender, no guarding and abdomen not rigid Neurologic: CN's II-XI intact bilaterally and moves all extremities; no focal motor deficits Psychiatric: A+Ox3, euthymic affect Results & Data ([facility]) Vital Signs (Past 12 Hours) Vital Signs Temp Pulse Pulse Resp BP Pulse Ox O2 Del Method 10/29/21 11:11 36.7 C 68 18 152/82 H 98 Room Air 10/29/21 07:32 86 10/29/21 07:14 36.7 C 70 18 149/81 H 98 Room Air 10/29/21 03:00 36.9 C 73 18 136/67 96
--- NOTE | 2021-10-29 13:42 | Electrocardiogram Report ---
Test Reason : Blood Pressure : / mmHG Vent. Rate : 076 BPM Atrial Rate : 076 BPM P-R Int : 176 ms QRS Dur : 096 ms QT Int : 388 ms P-R-T Axes : 043 -43 000 degrees QTc Int : 436 ms Normal sinus rhythm Left axis deviation Abnormal ECG When compared with ECG of 29-OCT-2021 08:13, (unconfirmed) Previous ECG has undetermined rhythm, needs review Confirmed by Broderick Clay ([id number]) on 10/29/2021 1:42:10 PM Referred By: REFERRED SELF Confirmed By:Broderick Clay
[2021-10-29] MEDS: ENOXAPARIN INJ 40 MG/0.4 ML SYR SQ SCH (13:47)
--- NOTE | 2021-10-29 14:01 | Discharge Summary ---
Date of Service October 29, 2021 Admission HPI Per Admitting Provider This is a 71-year-old male with PMH of hypertension, type 2 diabetes, history of prostate cancer, SHABBIR on CPAP and other medical problems listed below who presents after unwitnessed syncopal event earlier today. Patient and are on vacation from [place] outside of [place] in their mobile home staying at a local campground. Patient has been in normal state of health and able to go on his daily walks. Was getting ready this morning for his walk when he turned to grab his shirt off of the bed and then remembers "feeling funny" as if "mobile home was moving". Next thing he remembers is lying on the ground coming to with his by his side. They checked his blood sugar at that time which was 308. Blood pressure was 170/85. Denies any preceding lightheadedness, dizziness, chest pain or palpitations prior to syncopal event. Denies history of syncopal episodes. Does follow automation control technician for blood pressure and wore a Holter monitor recently that did not show any evidence of arrhythmia. No known history of CAD. No history of seizure. States he feels fine now except for general fatigue and fogginess. Denies confusion and headache. No fever, chills, congestion, chest pain, palpitations, shortness of breath, nausea, vomiting, abdominal pain, dysuria, diarrhea or constipation. Takes all medications as prescribed and took his blood pressure medication this morning. Principal Diagnosis Syncope Discharge Exam CONSTITUTIONAL: obese, vitals as above, generally well-appearing, NAD EYES: normal conjunctivae, no scleral icterus, ENT: external ear and nose normal, oropharynx clear, MMM NECK: trachea midline, RESPIRATORY: clear to auscultation bilaterally, no crackles, rales or wheezes, normal respiratory effort CARDIOVASCULAR: regular rate and rhythm, S1 and 2 heard without murmurs, gallops or rubs, no JVD, no peripheral edema CHEST: inspection of chest was normal GASTROINTESTINAL: soft, nontender, ND, no guarding MUSCULOSKELETAL: strength 5/5 throughout, head is normocephalic and atraumatic, SKIN: warm and dry, NEUROLOGIC: CN 2-12 grossly intact, no sensory deficit, normal cognition, normal speech, no tremor PSYCHIATRIC: alert cooperative and oriented to person, place and time. Euthymic mood, makes good eye contact, language grossly intact, recent and remote memory grossly intact. Discharge Data Allergies Allergy/AdvReac Type Severity Reaction Status Date / Time sulfamethoxazole AdvReac Hives Verified 10/28/21 13:31 [From Bactrim] trimethoprim [From Bactrim] AdvReac Hives Verified 10/28/21 13:31 Consultations 10/28/21 10:20 ED Decision to Admit Stat 10/29/21 09:59 Consult Cardiology Routine Ordered Studies 10/28/21 08:36 CT head/brain wo con Stat 10/28/21 08:48 CT cervical spine wo con Stat 10/28/21 10:41 US carotid doppler BI Urgent 10/28/21 10:57 MRI Brain [MR brain wo con] Routine Hospital Course (1) Syncope and collapse: This is a 71-year-old male with PMH of hypertension, type 2 diabetes, history of prostate cancer, SHABBIR on CPAP and other medical problems listed below who presents after unwitnessed syncopal event. He was monitored on telemetry with no evidence of arrhythmia throughout his stay. His symptoms did not return. Workup revealed no evidence of stroke, ACS, cardiac arrhythmia, electrolyte abnormalities or changes in glucose. It is unclear what may have contributed here. Recently started allopurinol and statin in the last two months and Trulicity was titrated up two weeks ago. It is unclear if that was a contributing factor. Would discharge and followup closely with primary care physician for further workup as outpatient if indicated, including consideration for an event monitor. He was advised not to drive until sen in re-evaluation by his automation control technician. He verbalized understanding with intent to comply (2) Hypertension: chronic, at goal. Continue home losartan, hctz, nebivolol (3) Type 2 diabetes mellitus: A1C pending, inpatient glucose at goal. Followup with primary care in one week of discharge and discuss possible medication side effects. Total Time Total Time Spent Total Time Spent (In Minutes): 60 Discharge Plan Discharge Items Patient Disposition: Home - Self-Care Reason For Visit: SYNCOPE Discharge Diagnosis: Syncope Condition on Discharge: Good Activity: Resume your previous activity Activity Comment: NO DRIVING Non-emergency contact: Primary Care Provider Call non-emergency contact if: you have any medication questions and your symptoms worsen Follow-up/Referrals: PCP,NO [Primary Care Provider] - Diet: Regular Addtl Attending Provider Instructions: Please follow-up with your primary care provider within one week of discharge to discuss your syncopal event and touch base with them on how you are doing. It is recommended that you undergo a 14 day event monitor that would watch for any abnormal heart rhythm, and they will be able to order this for you at followup, also. Please abstain from driving until you can be seen by your automation control technician in [place]. Please return to the emergency department with any recurrent lightheadedness, dizziness, syncope, or near syncope. It was a pleasure taking care of you! Please call if you have any questions or problems. You can reach a [facility] hospitalist on duty at [facility] 24 hours a day by calling [phone]. Take care of yourself. Gaby Garcia DO [facility] Pending Studies at Discharge: No Stand-Alone Forms: My [facility] Medications and DC Order Prescriptions: Continued allopurinol 100 mg tablet 100 mg PO DAILY metformin 1,000 mg tablet 1,000 mg PO BID hydrochlorothiazide 25 mg tablet 25 mg PO DAILY losartan 100 mg tablet 100 mg PO DAILY glipizide 5 mg tablet 5 mg PO BID rosuvastatin 10 mg tablet 10 mg PO HS nebivolol 5 mg tablet 5 mg PO DAILY Trulicity 3 mg/0.5 mL pen injector 3 mg SUBCUT WK cyanocobalamin (vitamin B-12) [Vitamin B-12] 1,000 mcg Tablet 1,000 mcg PO DAILY magnesium Tablet 1 tab PO DAILY cholecalciferol (vitamin D3) 25 mcg (1,000 unit) Tablet 25 mcg PO DAILY Discharge Orders: Discharge Order (Routine); Ordered 10/29/21 Ordered By: Gaby Garcia Admission Data Admit Date/Time: 10/28/21 10:40 Attending Provider: Gaby Garcia Admit Provider: Jhonathan Burkett Primary Care Provider: PCP,NO Other Providers: Jhonathan Burkett ; Missael eLe Other Interventions: Discharge Summary Assessment (RN) Last Done: 10/29/21 14:01
[2021-10-30 06:38] LABS: Estimated Average Glucose 189 mg/dl; Hemoglobin A1C 8.2 % (4.5-5.6)
== END 2021-10-29 14:13 | disposition home or self-care (01) ==
LOC: 2S 08:18 → ED 08:18 → SUATTDRO 10:40 → 2S 13:06
DX: E11.9 Type 2 diabetes mellitus without complications; Z79.84 Long term (current) use of oral hypoglycemic drugs; I10 Essential (primary) hypertension; Z79.899 Other long term (current) drug therapy; R55 Syncope and collapse; G47.33 Obstructive sleep apnea (adult) (pediatric); Z88.1 Allergy status to other antibiotic agents; Z88.2 Allergy status to sulfonamides